=== PATIENT | female | born 1985 | race African-American/Black ===

== ENCOUNTER 2018-10-08 13:53 | Outpatient (CLI) | payer OTHER ==
[2018-10-08 14:43] VITALS: BP 100/58
[2018-10-08 14:46] LABS: BILIRUBIN,URINE NEGATIVE (NEGATIVE); GLUCOSE, URINE (UA) NEGATIVE (NEGATIVE); KETONES,URINE (UA) NEGATIVE (NEGATIVE); LEUKOCYTE ESTERASE, URINE TRACE (NEGATIVE); NITRITE,URINE NEGATIVE (NEGATIVE); OCCULT BLOOD,URINE NEGATIVE (NEGATIVE); PH,URINE 7.5 PH (5.0-7.5); PROTEIN,URINE NEGATIVE (NEGATIVE); UROBILINOGEN,URINE 0.2 (NORMAL) E.U./dL (NORMAL)
[2018-10-08 14:54] LABS: CLARITY,URINE CLEAR (CLEAR)
[2018-10-08 14:55] LABS: BACTERIA,URINE None Seen /HPF (None Seen); RBC,URINE 0-5 /HPF (0-5); SQUAMOUS EPITHELIAL CELL,UR NONE SEEN (<= Few)
[2018-10-08 15:06] LABS: RUPTURE OF MEMBRANES PLUS NEGATIVE (NEGATIVE)
[2018-10-08 15:23] LABS: BASOPHILS % (AUTO) 0.3 %; EOSINOPHILS # (AUTO) 0.1 10^3/uL (0.0-0.7); EOSINOPHILS % (AUTO) 2.2 %; HGB - HEMOGLOBIN 11.2 g/dL (12.0-16.0); LYMPHOCYTES # (AUTO) 1.5 10^3/uL (1.5-3.5); LYMPHOCYTES % (AUTO) 29.5 %; MEAN CORPUSCULAR HEMOGLOBIN 32.8 pg (27.0-31.0); MEAN CORPUSCULAR HGB CONC 35.2 g/dL (32.0-36.0); MEAN CORPUSCULAR VOLUME 93.2 fL (81.0-99.0); MEAN PLATELET VOLUME 8.3 fL (7.9-10.8); MONOCYTES # (AUTO) 0.6 10^3/uL (0.0-1.0); MONOCYTES % (AUTO) 12.2 %; NEUTROPHILS # (AUTO) 2.8 10^3/uL (1.5-6.6); NEUTROPHILS % (AUTO) 55.8 %; PLT - PLATELET COUNT 199 10^3/uL (130-450); RED CELL DISTRIBUTION WIDTH 12.7 % (12.0-15.0)
--- NOTE | 2018-10-08 17:56 | PROVIDER PROGRESS NOTE ---
Subjective - Prog Note Date Prog Note Date: 10/08/18 Prog Note Time: 18:30 - Subjective Pt reports feeling: Improved Subjective: Mrs. Tita Hart is a 33-year-old -[place] 2 para 1001 at 37 weeks 3 days gestation who receives her care with Dr. Santamaria at [facility]. She comes to [facility] because [facility] is on divert. She notes contractions stronger than her other bouts of [place] with possible Clear fluid leakage of fluid. She has no fevers chills nausea vomiting or symptoms suggestive of UTI. She has no symptoms suggestive of PIH.On the to September she had a routine visit due to movement and shifting that revealed a breech presentation by Carie. [facility] chart reviewed. lab review: Chlamydia GC negative sickle cell and cystic fibrosis screen negative integrated screen negative; urine culture negative hepatitis B C and a screen negative; rubella immune; RPR nonreactive; HIV nonreactive; Blood type a positive antibody screen negative Glucola challenge test 92 Objective - Vital Signs/Intake & Output Vital Signs: Vital Signs x48h Temp Pulse Resp BP Pulse Ox 10/08/18 14:16 98.6 F 83 16 100/58 L 100 - Lab Results Fish Bones: 10/08/18 15:11 Other Labs: Lab Results x24hrs 10/08/18 10/08/18 10/08/18 Range/Units 15:11 15:11 14:20 WBC 5.0 (4.8-10.8) x10^3/uL RBC 3.40 L (4.20-5.40) 10^6/uL Hgb 11.2 L (12.0-16.0) g/dL Hct 31.7 L (37.0-47.0) % MCV 93.2 (81.0-99.0) fL MCH 32.8 H (27.0-31.0) pg MCHC 35.2 (32.0-36.0) g/dL RDW 12.7 (12.0-15.0) % Plt Count 199 (130-450) 10^3/uL MPV 8.3 (7.9-10.8) fL Neut # (Auto) 2.8 (1.5-6.6) 10^3/uL Lymph # (Auto) 1.5 (1.5-3.5) 10^3/uL Campbell # (Auto) 0.6 (0.0-1.0) 10^3/uL Eos # (Auto) 0.1 (0.0-0.7) 10^3/uL Baso # (Auto) 0.0 (0.0-0.1) 10^3/uL Absolute Nucleated RBC 0.00 x10^3/uL Nucleated RBC % 0.0 /100WBC Urine Color YELLOW Urine Clarity CLEAR (CLEAR) Urine pH 7.5 (5.0-7.5) PH Ur Specific [place] 1.010 (1.002-1.030) Urine Protein NEGATIVE (NEGATIVE) mg/dL Urine Glucose (UA) NEGATIVE (NEGATIVE) mg/dL Urine Ketones NEGATIVE (NEGATIVE) mg/dL Urine Occult Blood NEGATIVE (NEGATIVE) Urine Nitrite NEGATIVE (NEGATIVE) Urine Bilirubin NEGATIVE (NEGATIVE) Urine Urobilinogen 0.2 (NORMAL) (NORMAL) E.U./dL Ur Leukocyte Esterase TRACE H (NEGATIVE) Urine RBC 0-5 (0-5) /HPF Urine WBC 0-3 (0-5) /HPF Ur Squamous Epith Cells NONE SEEN (<= Few) Urine Bacteria None Seen (None Seen) /HPF Urine Culture Comments INDICATED Membranes Rupture (NEGATIVE) Blood Type A POSITIVE Antibody Screen NEGATIVE 10/08/18 Range/Units 14:20 WBC (4.8-10.8) x10^3/uL RBC (4.20-5.40) 10^6/uL Hgb (12.0-16.0) g/dL Hct (37.0-47.0) % MCV (81.0-99.0) fL MCH (27.0-31.0) pg MCHC (32.0-36.0) g/dL RDW (12.0-15.0) % Plt Count (130-450) 10^3/uL MPV (7.9-10.8) fL Neut # (Auto) (1.5-6.6) 10^3/uL Lymph # (Auto) (1.5-3.5) 10^3/uL Campbell # (Auto) (0.0-1.0) 10^3/uL Eos # (Auto) (0.0-0.7) 10^3/uL Baso # (Auto) (0.0-0.1) 10^3/uL Absolute Nucleated RBC x10^3/uL Nucleated RBC % /100WBC Urine Color Urine Clarity (CLEAR) Urine pH (5.0-7.5) PH Ur Specific [place] (1.002-1.030) Urine Protein (NEGATIVE) mg/dL Urine Glucose (UA) (NEGATIVE) mg/dL Urine Ketones (NEGATIVE) mg/dL Urine Occult Blood (NEGATIVE) Urine Nitrite (NEGATIVE) Urine Bilirubin (NEGATIVE) Urine Urobilinogen (NORMAL) E.U./dL Ur Leukocyte Esterase (NEGATIVE) Urine RBC (0-5) /HPF Urine WBC (0-5) /HPF Ur Squamous Epith Cells (<= Few) Urine Bacteria (None Seen) /HPF Urine Culture Comments Membranes Rupture NEGATIVE (NEGATIVE) Blood Type Antibody Screen Physical Exam - Physical Exam General: positive: No acute distress, Alert HEENT: positive: Moist mucous membranes Neck: positive: Supple w/out meningeal sx Abdomen: positive: Other (No abdominal tenderness or organomegaly) Female : positive: Dilated cervix (Cervix closed non-effaced as reported by nursing; SROM taken), Enlarged uterus (Uterus appropriate size for 36-37 weeks without tenderness or contractions palpable External heart mode monitor: Baseline 135 moderate variability multiple accelerations no decelerations, no significant contractions noted), Other (Abdominal ultrasound confirms a vertex presentation. Grossly amniotic fluid volume normal) Extremities: positive: No pedal edema Skin: positive: Warm and dry Neurologic: positive: Normal motor/no weakness, Normal Sensation, Normal Speech Assessment/Plan - Assessment/Plan Assessment: lie is no longer breech and the patient is not in labor. NST is reactive and there are no concerns. Plan: Patient to return to [facility] and Dr. Santamaria for continued care as previously scheduled.
== END 2018-10-08 17:35 | disposition home or self-care (01) ==
LOC: WFO 13:53 → FBP 13:55 → WFO 17:35
PROVIDERS: ATTEND Obstetrics & Gynecology
DX: O47.1 False labor at or after 37 completed weeks of gestation (principal); Z3A.37 37 weeks gestation of pregnancy
CPT/HCPCS: 36415; 59025; 81001; 84112; 85025; 86850; 86900; 86901; 87086